=== PATIENT | male | born 1955 | race African-American/Black ===

== ENCOUNTER 2022-12-08 06:26 | Emergency (ER) | payer OTHER, MEDICAID ==
[~2022-12-08] VITALS: Ht 182.9 cm; Wt 70.0 kg
[2022-12-08 06:27] VITALS: BP 142/80
[2022-12-08] MEDS ORDERED: ACETAMINOPHEN 325MG TABLET PO ONE (07:45)
[2022-12-08] MEDS ORDERED: TOPUD PO (08:32)
== END 2022-12-08 09:11 | disposition home or self-care (01) ==
LOC: ER 06:26
DX: M54.42 Lumbago with sciatica, left side (principal); M25.552 Pain in left hip
CPT/HCPCS: 73502; 99283